=== PATIENT | male | born 1995 | race Caucasian/White ===

== ENCOUNTER 2017-07-24 23:38 | Emergency (ER) | payer BC, OTHER ==
[2017-07-25] MEDS ORDERED: oxyCODONE/Acetamin 5/325 MG* TAB PO ONE (01:11)
[2017-07-25] MEDS ORDERED: Lidocaine 2% PF * 5 ML VIAL ONE (01:38)
[2017-07-25 03:35] VITALS: BP 123/69
--- NOTE | 2017-07-25 03:43 | ED ---
Anmol Cline Thomas, scribed for Tresa Bergeron MD on 07/25/17 at 0129 . Upper Extremity Pain - HPI Summary HPI Summary: The patient is a 22 year old male complaining of right wrist pain after he fell from a standing position and broke the fall onto his right hand. The patient also complains of numbness to his fingers. - History of Current Complaint Chief Complaint: EDExtremityUpper Stated Complaint: RIGHT WRIST INJURY Time Seen by Provider: 07/25/17 01:02 Hx Obtained From: Patient Mechanism Of Injury: Fall From A Standing Position Onset/Duration: Still Present Timing: Constant Severity Currently: Moderate Pain Location: Wrist - right Aggravating Factor(s): Movement Alleviating Factor(s): Nothing Associated Signs & Symptoms: Positive: Other - Numbness to fingers of right hand - Allergies/Home Medications Allergies/Adverse Reactions: Allergies Allergy/AdvReac Type Severity Reaction Status Date / Time Penicillins Allergy Rash Verified 07/24/17 23:50 PMH/Surg Hx/FS Hx/Imm Hx Endocrine/Hematology History: Denies: Hx Diabetes Cardiovascular History: Denies: Hx Hypertension Infectious Disease History: No Infectious Disease History: Denies: Traveled Outside the [place] in Last 30 Days - Family History Known Family History: Negative: Blood Disorder - Social History Occupation: Student Lives: Dormitory/Roommates Alcohol Use: Occasionally Hx Substance Use: No Substance Use Type: Reports: None Hx Tobacco Use: No Smoking Status (MU): Never Smoked Tobacco Review of Systems Negative: Fever Positive: Other - Right wrist pain Positive: Numbness All Other Systems Reviewed And Are Negative: Yes Physical Exam - Summary Physical Exam Summary: VITAL SIGNS: Reviewed. GENERAL: Patient is a well-developed and nourished male who is lying comfortable in the stretcher. Patient is not in any acute respiratory distress. HEAD AND FACE: No signs of trauma. No ecchymosis, hematomas or skull depressions. No sinus tenderness. EYES: PERRLA, EOMI x 2, No injected conjunctiva, no nystagmus. EARS: Hearing grossly intact. Ear canals and tympanic membranes are within normal limits. MOUTH: Oropharynx within normal limits. NECK: Supple, trachea is midline, no adenopathy, no JVD, no carotid bruit, no c- spine tenderness, neck with full ROM. CHEST: Symmetric, no tenderness at palpation LUNGS: Clear to auscultation bilaterally. No wheezing or crackles. CVS: Regular rate and rhythm, S1 and S2 present, no murmurs or gallops appreciated. ABDOMEN: Soft, non-tender. No signs of distention. No rebound no guarding, and no masses palpated. Bowel sounds are normal. EXTREMITIES: He has tenderness to his right wrist. There is decreased range of motion of the right wrist secondary to pain. Neurovascular exam is intact distally. NEURO: Alert and oriented x 3. No acute neurological deficits. Speech is normal and follows commands. SKIN: Dry and warm Triage Information Reviewed: Yes Vital Signs On Initial Exam: Initial Vitals Temp Pulse Resp BP Pulse Ox 97.8 F 83 16 131/81 99 07/24/17 23:49 07/24/17 23:49 07/24/17 23:49 07/24/17 23:49 07/24/17 23:49 Vital Signs Reviewed: Yes Procedures - Procedure Summary Procedure Summary: REDUCTION OF DISTAL RADIAL FRACTURE: I used Lido 2% without Epi for a hematoma block. Traction counter-traction was used for reduction. Orthoglass was used for a sugar tongue splint. Neurovascular exam is intact pre- and post-reduction. Post-reduction shows improvement in the alignment, but it is not completely reduced. Diagnostics - Vital Signs Vital Signs Temp Pulse Resp BP Pulse Ox 07/24/17 23:49 97.8 F 83 16 131/81 99 - Laboratory Lab Statement: Any lab studies that have been ordered have been reviewed, and results considered in the medical decision making process. - Radiology Wrist XR #1 Pre-reduction Xray Interpretation: Positive (See Comments) - Distal radial fracture with dorsal displacement 50%. Radiology Interpretation Completed By: ED Physician Wrist XR #2 Post-reduction Xray Interpretation: Positive (See Comments) - Improvement in the alignment, but not completely reduced. Radiology Interpretation Completed By: ED Physician Course/Dx - Course Assessment/Plan: The patient is a 22 year old male complaining of right wrist pain after he fell from a standing position and broke the fall onto his right hand. In the ED course, the patient was given Percocet. Wrist XR shows distal radial fracture with dorsal displacement 50%. I did a reduction of the fracture and orthoglass splinting. There is some improvement in the alignment in the post -reduction XR, but it is not completely reduced. The patient is diagnosed with distal radial fracture. The patient will be discharged home to follow up with orthopedics in the morning. - Diagnoses Provider Diagnoses: Distal radial fracture Discharge - Sign-Out/Discharge Documenting (check all that apply): Discharge/Admit/Transfer - Discharge Plan Condition: Stable Disposition: HOME Patient Education Materials: Wrist Fracture in Adults (ED) Referrals: Kristina Wright MD [Medical Doctor] - 1 Day Additional Instructions: Follow up with Dr. Wright, orthopedics, in the morning. Return to the emergency department for any new or worsening symptoms. The documentation as recorded by the Anmol nagy Thomas accurately reflects the service I personally performed and the decisions made by , Tresa Bergeron MD.
--- NOTE | 2017-07-25 07:32 | RAD ---
INDICATION: Right wrist pain after a slip and fall injury COMPARISON: None. TECHNIQUE: 3 views right wrist. REPORT: There is a slightly impacted and displaced fracture of the distal right radius with the distal fracture fragment measuring approximately 30 degrees of volar angulation. The remaining visualized bones appear to be intact and appropriately aligned. IMPRESSION: Displaced comminuted fracture involving the distal right radius.
--- NOTE | 2017-07-25 07:56 | RAD ---
INDICATION: Post reduction RIGHT wrist fracture COMPARISON: Prereduction exam of the same date. TECHNIQUE: AP, lateral, and oblique views RIGHT wrist. REPORT AND IMPRESSION: Reduced magnitude of apex volar angulation at the mildly comminuted impacted distal metaphyseal fracture of the radius with probable extension to the distal radioarticular surface. Persistent dorsal tilt of the distal radial articular surface. Suggestion of an associated ulnar styloid avulsion fracture.
== END 2017-07-25 03:32 | disposition home or self-care (01) ==
LOC: ED 23:38
DX: S09.90XA Unspecified injury of head, initial encounter (principal); W19.XXXA Unspecified fall, initial encounter; Z91.81 History of falling; Y92.9 Unspecified place or not applicable; R51 Headache; R11.0 Nausea
CPT/HCPCS: 99281; A9270-GY

== ENCOUNTER 2017-07-28 13:56 | Day surgery (SDC) | payer BC ==
[~2017-07-28 13:56] MED LIST: Buffered Lidocaine 0.9% SYRIN* 5 ML/SYR SYRINGE INTRADERM ONE; Famotidine TAB* 20 MG PO ONE
[2017-07-28] MEDS ORDERED: Famotidine TAB* 20 MG ONE (15:10)
[2017-07-28] MEDS ORDERED: Dexamethasone IV* 4 MG/ML 1 ML (4 MG) ONE (16:04)
[2017-07-28] MEDS ORDERED: Ondansetron INJ* 2 MG/ML VIAL ONE (16:04)
[2017-07-28] MEDS ORDERED: fentaNYL* 50 MCG/ML 2 ML VIAL (100 MCG VIAL) ONE ×3 (16:04→18:19)
[2017-07-28] MEDS ORDERED: Lidocaine 2% PF * 5 ML VIAL ONE (16:04)
[2017-07-28] MEDS ORDERED: Midazolam* 1 MG/ML 5 ML VIAL (5 MG) ONE (16:04)
[2017-07-28] MEDS ORDERED: Ketorolac INJ* 30 MG/ML 1 ML VIAL ONE (16:04)
[2017-07-28] MEDS ORDERED: Propofol* 10 MG/ML 20 ML BTL IV PUSH ONE ×2 (16:04→19:05)
[2017-07-28] MEDS ORDERED: Clindamycin 900 MG IVPREMIX(* 900 MG/50 ML SDV IV ONE ×2 (16:23→16:24)
[2017-07-28] MEDS ORDERED: Bupivacaine 0.25% SDV* 30 ML ONE (17:27)
[2017-07-28] MEDS ORDERED: HYDROmorphone INJ* 1 MG/ML CARPUJECT SYRINGE ONE (18:41)
[2017-07-28] MEDS ORDERED: DiMENhydriNATE IV* 50 MG/ML VIAL IV PUSH PRN (19:09)
[2017-07-28] MEDS ORDERED: Acetaminophen TAB* 325 MG PO PRN (19:09)
[2017-07-28] MEDS ORDERED: HYDROmorphone INJ* 1 MG/ML CARPUJECT SYRINGE IV PRN (19:09)
[2017-07-28] MEDS ORDERED: Naloxone* 0.4 MG/ML 1 ML VIAL IV PRN (19:09)
[2017-07-28] MEDS ORDERED: HYDROmorphone INJ* 2 MG/ML CARPUJECT SYRINGE ONE (20:01)
[2017-07-28] MEDS ORDERED: Acetaminophen TAB* 325 MG ONE (20:01)
[2017-07-28 21:03] VITALS: BP 147/88
--- NOTE | 2017-07-29 07:38 | RAD ---
INDICATION: Right wrist surgery. COMPARISON: Comparison is made with a prior x-ray study of the right wrist from July 25, 2017. TECHNIQUE: 15 seconds of intermittent fluoroscopic guidance were provided and 3 spot films of the right wrist were obtained in the operating room. FINDINGS: The patient is undergoing operative reduction internal fixation of a comminuted fracture of the distal radius. There is a surgical plate present along the volar aspect of the distal radius transfixing the fracture fragments as previous described. The bones are in normal alignment. There is also a small avulsion fracture fragment of the ulnar styloid process. IMPRESSION: STATUS POST OPERATIVE REDUCTION INTERNAL FIXATION OF A COMMINUTED FRACTURE OF THE DISTAL RADIUS. CPT II Codes: G9500
--- NOTE | 2017-07-29 14:19 | OP ---
DATE OF OPERATION: 07/28/17 - [facility] DATE OF : 89 SURGEON: Carlos Cuadra MD. SIGHT EFFECTS SPECIALIST: SANA Momin. An staffing assistant was needed for the procedure to aid in positioning of the arm and retraction. ANESTHESIOLOGIST: Dr. Washington. ANESTHESIA: General. PRE-OP DIAGNOSIS: Right displaced distal radius fracture. POST-OP DIAGNOSIS: Right displaced distal radius fracture. OPERATIVE PROCEDURE: Open reduction and internal fixation of right displaced distal radius fracture. INDICATIONS: Padilla is 22 years old. He had fallen on a wet floor and fractured the right wrist. It was very displaced. I talked to him about his options. I did recommend surgery. He agreed and wanted to proceed. ESTIMATED BLOOD LOSS: 5 mL. COMPLICATIONS: None. FINDINGS: As expected. DESCRIPTION OF PROCEDURE: Padilla was seen in the preoperative holding area. The correct side, site, and procedure were identified. We came back to the operating room. The arm was prepped and draped in the usual fashion. Time-out was performed. The arm was exsanguinated with the Esmarch and the tourniquet was inflated to 250 mmHg. I made a longitudinal incision over the distal FCR tendon. The dissection was carried down and the FCR tendon sheath was opened and was retracted ulnarly. The subsheath was opened. I developed the interval between the FPL and the radial artery. The pronator quadratus was released off the radial aspect of the radius and then T'd back distally. The hand was placed in an Arthrex hand andesron and then 10 pounds of traction were applied. It was somewhat of an unusual fracture, in that it had almost a Z-shape to it through the metaphysis of the radius. On the palmar aspect, the fracture was more proximal and then it ran longitudinally and then on the radial aspect it was very distal right at the watershed line. Radially, it was behaving more like a dorsal Nava's almost. I freed up the interposing soft tissue. I reduced the fracture. Once I had it nicely reduced, I provided my Synthes variable angle distal radius plate and pinned into place distally and placed one 2.4-mm cortical screw in the oblong hole proximally. The reduction was confirmed on fluoroscopy. I then filled the remainder of the distal holes with 2.4-mm locking screws. These were left 2 mm shy of what we measured on the depth gauge to avoid penetrating the dorsal cortex. I placed 2 additional 2.4- mm cortical screws proximally. Final fluoroscopic imaging showed excellent reduction of the fracture and good placement of the hardware. The screw going down to Demarcus's tubercle initially was a 22 and I thought it was a bit long on the lateral, so I switched it out for a 20-mm screw. I then irrigated out the wound. The pronator was closed to the extent possible with 3-0 Vicryl. The distal radial aspect was too badly damaged with a fracture, so we could not get the plate to cover there, but the remainder of the pronator was closed. Subcutaneous tissue was reapproximated with 3-0 Vicryl. Skin was closed with 4- 0 Monocryl and Steri-Strips. The wound was dressed appropriately and a cock-up plaster wrist splint was applied. He was then woken up and taken to the recovery room in stable condition. [id number]/CPS #: [id number] ULISSES
== END 2017-07-28 21:34 | disposition home or self-care (01) ==
LOC: OR 13:56
PROVIDERS: ATTEND Orthopaedic Surgery Hand Surgery
DX: S52.591A Other fractures of lower end of right radius, initial encounter for closed fracture (principal); W01.198A Fall on same level from slipping, tripping and stumbling with subsequent striking against other object, initial encounter; Y92.9 Unspecified place or not applicable
CPT/HCPCS: 76000; A9270-GY; C1713; C1776; J1100; J1170; J1885; J2250; J2405; J2704; J3010